=== PATIENT | male | born 1990 | race Caucasian/White ===

== ENCOUNTER 2017-11-14 10:42 | Emergency (ER) | payer OTHER ==
[2017-11-14] MEDS: KETOROLAC TROMETHAMINE 10 MG TAB PO (11:55)
== END 2017-11-14 13:50 | disposition home or self-care (01) ==
LOC: M ED 10:42
DX: S62.347A Nondisplaced fracture of base of fifth metacarpal bone, left hand, initial encounter for closed fracture (principal); M79.631 Pain in right forearm; Y04.0XXA Assault by unarmed brawl or fight, initial encounter; Y92.89 Other specified places as the place of occurrence of the external cause; Y93.89 Activity, other specified
CPT/HCPCS: 73080

== ENCOUNTER 2019-03-13 19:13 | Emergency (ER) | payer MEDICAID, OTHER, SELFPAY ==
[~2019-03-13] VITALS: Ht 188 cm; Wt 108.2 kg
[~2019-03-13 19:13] MED LIST: GABA-1171 PO; HYDR-3715 PO; NEXI20GR PO
[2019-03-13] MEDS ORDERED: IBUP200C25 PO (19:23)
--- NOTE | 2019-03-13 20:22 | REP ---
Clinical: Trauma. Foreign body. Technique: Portable AP and lateral views. Findings: There is a foreign body consistent with nail via the soft tissues along the lateral aspect of the ankle overlying the calcaneus and suspected to be within the calcaneus itself based on the two given orthogonal images. Remainder examination appears normal. Impression: Foreign body consistent with nail through the lateral soft tissues of the ankle suspected to be imbedded in the calcaneus. Electronically Signed by Azeem Resendez MD 03/13/2019 08:13 P
[2019-03-13] MEDS ORDERED: MORPHINE 10 MG/ML 1ML VIAL (J2270) IV ONE (20:45)
[2019-03-13] MEDS ORDERED: PROPOFOL 200 MG/20 ML VIAL As Ordered ONE ×2 (20:56→20:58)
[2019-03-13 21:17] VITALS: O2SAT 100
[2019-03-13] MEDS ORDERED: AMPICILLIN SOD/SULBACTAM SOD 3 GM in D5W MINI-BAG PLUS 100 ML IV ONE (21:30)
[2019-03-13] MEDS ORDERED: PROPOFOL 200 MG/20 ML VIAL IV ONE ×5 (21:30)
[2019-03-13] MEDS ORDERED: fentaNYL 100 MCG/2 ML INJECTION (J3010) IV ONE (21:30)
[2019-03-13] MEDS ORDERED: NS 1,000 ML IV ONE (21:45)
[2019-03-13] MEDS ORDERED: AUGM500T34 PO (21:58)
[2019-03-13] MEDS ORDERED: NORCO 5/325MG TABLET (BULK FOR ED) PO ONE (22:00)
[2019-03-13] MEDS ORDERED: HYDROMORPHONE HCL 0.5 MG/ 0.5 ML SYRINGE (J1170 PER 1) IV ONE (22:15)
--- NOTE | 2019-03-13 22:27 | REP ---
Nickel: Status post procedure. Technique: Portable AP and lateral views of the right foot. Findings: Foreign body has been removed. Swelling and subcutaneous emphysema along the lateral aspect of the ankle overlying the area of the calcaneus noted. No obvious osseous involvement appreciated. Impression: Status post foreign body removal. Swelling and subcutaneous emphysema. Electronically Signed by Azeem Resendez MD 03/13/2019 10:19 P
[2019-03-13 22:43] VITALS: BP 124/74
== END 2019-03-13 22:50 | disposition home or self-care (01) ==
LOC: M ED 19:13
DX: S91.341A Puncture wound with foreign body, right foot, initial encounter (principal); W45.0XXA Nail entering through skin, initial encounter; Y92.89 Other specified places as the place of occurrence of the external cause; R11.10 Vomiting, unspecified; K21.9 Gastro-esophageal reflux disease without esophagitis; F17.200 Nicotine dependence, unspecified, uncomplicated; Z79.899 Other long term (current) drug therapy
CPT/HCPCS: 36415; 73620; 96365; 96375; 99152; 99153; 99291; J1170; J2270; J3010

== ENCOUNTER 2019-04-11 09:58 | Emergency (ER) | payer MEDICAID, OTHER, SELFPAY ==
[~2019-04-11] VITALS: Ht 188 cm; Wt 97.3 kg
[~2019-04-11 09:58] MED LIST changes: +AUGM500T34 PO; +IBUP200C25 PO
[2019-04-11] MEDS ORDERED: ACETAMINOPHEN 500 MG TAB PO ONE (10:30)
[2019-04-11] MEDS ORDERED: KETOROLAC 30 MG/ML VIAL (J1885) IV ONE (10:30)
--- NOTE | 2019-04-11 11:11 | REP ---
Clinical: Trauma. Technique: AP, lateral, bilateral oblique views of the right hand. Findings: There is a comminuted mildly displaced fracture at the base of the fifth metacarpal bone with overlying soft tissue swelling. Remainder examination appears normal. Impression: Comminuted mildly displaced fracture at the base of the fifth metacarpal bone. Electronically Signed by Azeem Resendez MD 04/11/2019 11:03 A
[2019-04-11] MEDS ORDERED: KETOROLAC 30 MG/ML VIAL (J1885) IM ONE (11:15)
[2019-04-11 11:38] VITALS: BP 116/70
[2019-04-11] MEDS ORDERED: NORC1TAB7 PO (12:45)
== END 2019-04-11 12:52 | disposition home or self-care (01) ==
LOC: M ED 09:58
DX: S62.316A Displaced fracture of base of fifth metacarpal bone, right hand, initial encounter for closed fracture (principal); W22.09XA Striking against other stationary object, initial encounter; Y92.098 Other place in other non-institutional residence as the place of occurrence of the external cause; K21.9 Gastro-esophageal reflux disease without esophagitis; K27.9 Peptic ulcer, site unspecified, unspecified as acute or chronic, without hemorrhage or perforation; M54.30 Sciatica, unspecified side; Z87.891 Personal history of nicotine dependence; Z79.899 Other long term (current) drug therapy
CPT/HCPCS: 73130; 96372; 99283; J1885